=== PATIENT | female | born 1995 | race Two or more races ===

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

== ENCOUNTER 2019-02-07 05:49 | Emergency (ER) | payer OTHER ==
[2019-02-07 06:03] VITALS: BMI 27.1
[2019-02-07] MEDS ORDERED: ACETAMINOPHEN 325 MG TABLET (FP) PO ONE (07:40)
[2019-02-07] MEDS ORDERED: IBUPROFEN 400 MG TABLET (FP) PO ONE ×2 (07:40→08:35)
--- NOTE | 2019-02-07 07:41 | PDOC ---
History of Present Illness - General Chief Complaint: Chest Pain Stated Complaint: PALPITATIONS Time Seen by Provider: 02/07/19 07:29 History Source: Patient Exam Limitations: No Limitations - History of Present Illness Initial Comments: 02/07/19 07:40 23y F with no pmhx persents with complaint of chest pain since awakening this morning. The patient was in her usual state of health until this morning when she woke up at 4am. She noticd some sternal chest pain especialy when she moved raound, sat up, took a deep berath, fever/chils. pt denies any sob/wilkerson, cough, hemoptysis, diziness, palpitatins, n/v, diaphoresis. No prior history of chest pain. No recent history of trauma, heavy lifting. Pt denies any leg swelling. Pt on no mdications. social: denies smoking family: noncontributory Past History - Past Medical History Allergies/Adverse Reactions: Allergies Allergy/AdvReac Type Severity Reaction Status Date / Time No Known Allergies Allergy Verified 02/07/19 05:57 Home Medications: Ambulatory Orders Nitrofurantoin Monohyd/M-Cryst [Macrobid -] 100 mg PO BID 08/16/16 COPD: No - Reproductive History (#): 1 Para: 0 Cervical CA: No Dysfunctional Uterine Bleeding: No Ectopic : No Endometrial CA: No Polycystic Ovaries: No Therapeutic (s) & number: Yes Tubal Ligation: No - Immunization History Immunization Up to Date: Yes - Psycho Social/Smoking Cessation Hx Smoking Status: No Smoking History: Never smoked Number of Cigarettes Smoked Daily: 0 Hx Alcohol Use: No Drug/Substance Use Hx: No Substance Use Type: None Review of Systems - Review of Systems Able to Perform ROS?: Yes Comments:: 02/07/19 07:59 ROS: Constitutional - no reported Fever, Chills, HEENT: no reported vision changes, sore throat Respiratory: no reported cough, sob, hemoptysis Cardiac: +chest pain, no reported palpitations, light headedness, leg swelling Abd/GI: no reported abd pain, nausea, vomiting, blood per rectum, melena, diarrhea : no reported dysuria, frequency, discharge Musculskelatal - no reported back pain, joint swelling skin - no reported bruising, erythema, rash neurological: no reported headache, numbness, focal weakness, tingling, ataxia, hematologic: no reported easy bruising, easy bleeding Physical exam: GENERAL: The patient is awake, alert, and fully oriented, Nontoxic - in no acute distress. HEAD: Normocephalic, atraumatic. EYES: extraocular movements intact, sclera anicteric, conjunctiva clear. ENT: Normal voice, Moist mucous membranes. NECK: Normal range of motion, supple LUNGS: Breath sounds equal, clear to auscultation bilaterally. No wheezes, no rhonchi, no rales. CHEST: Mild ttp to the sternum, no rashes present, +pain with flexion/extension , abduction of shoulder HEART: Regular rate and rhythm, normal S1 and S2 without murmur, rub or gallop. ABDOMEN: Soft, nontender, No guarding, no rebound. No CVA tenderness EXTREMITIES: Normal range of motion, no edema. NEUROLOGICAL: No facial assymetry, Normal speech, PSYCH: Normal mood, normal affect. SKIN: Warm, Dry, normal turgor, *Physical Exam - Vital Signs Last Vital Signs Temp Pulse Resp BP Pulse Ox 98.4 F 101 H 16 104/64 99 02/07/19 10:05 02/07/19 10:05 02/07/19 10:05 02/07/19 10:05 02/07/19 10:05 Heart Score/ECG Review - ECG Impressions Comment:: 02/07/19 08:09 Twelve-lead EKG was performed and reviewed by me. There is normal sinus rhythm with a normal rate. Rate of [address] changes suggest of acute ischemia Impression: NSR ED Treatment Course - ADDITIONAL ORDERS Additional order review: Laboratory Results 02/07/19 10:05 Urine HCG, Qual Negative - RADIOLOGY Radiology Studies Ordered: Category Date Time Status CHEST PA & LAT [RAD] Stat Radiology 02/07/19 07:41 Completed - Medications Given in the ED: ED Medications Discontinued Medications Generic Name Dose Route Start Last Admin Trade Name Marcoq PRN Reason Stop Dose Admin Acetaminophen 650 mg 02/07/19 07:40 02/07/19 08:30 Tylenol - PO 02/07/19 07:41 650 mg ONCE ONE Administration Ibuprofen 400 mg 02/07/19 07:40 02/07/19 08:30 Motrin - PO 02/07/19 07:41 400 mg ONCE ONE Administration Medical Decision Making - Medical Decision Making 02/07/19 08:02 23-year-old female no significant past medical history presenting with atraumatic sternal chest pain that is reproduced with movement of her arms and on palpation, there is no rash present, there is no anginal symptoms. suspect chostochrndriis - will treat with motrin, will obtin cxr ekg wnl 02/07/19 10:31 pt feeling improved O2 sat 98% on RA will dc with pmd fu return precautions were discused I discussed the physical exam findings, ancillary test results and final diagnoses with the patient. I answered all of the patient's questions. The patient was satisfied with the care received and felt comfortable with the discharge plan and treatment plan. The patient will call their primary care physician within 24 hours to arrange follow-up and will return to the Emergency Department with any new, persistent or worsening symptoms. Discharge - Discharge Information Problems reviewed: Yes Clinical Impression/Diagnosis: Costochondral chest pain Condition: Improved Disposition: HOME - Admission No - Follow up/Referral Referrals: Say Colunga [Primary Care Provider] - - Patient Discharge Instructions Patient Printed Discharge Instructions: DI for Costochondritis Additional Instructions: Return to the emergency department immediately with ANY new, persistent or worsening symptoms. Tke ibuprofen and tylenol every 6 hours for the next 2 days. Avoid heavy lifting You MUST call and follow up with your doctor tomorrow for further evaluation of your symptoms. Results were discussed with you. Please make sure your doctor reviews the results of your emergency evaluation. Your Emergency Department visit is not complete without a follow up with your doctor. If you had any xrays during your visit, it was read preliminarily by myself, a Radiologist will review it and if there are any additional findings we will call you. Print Language: MOLDOVAN - Post Discharge Activity Work/Back to School Note: Back to Work
[2019-02-07] MEDS ORDERED: ACETAMINOPHEN 325 MG TABLET (FP) ONE (08:35)
[2019-02-07 10:06] VITALS: PULSE 101; TEMP 98.4
[2019-02-07 10:39] VITALS: BP 104/64
--- NOTE | 2019-02-07 13:59 | EKG ---
Test Reason : Blood Pressure : / mmHG Vent. Rate : 080 BPM Atrial Rate : 080 BPM P-R Int : 150 ms QRS Dur : 072 ms QT Int : 368 ms P-R-T Axes : 065 022 047 degrees QTc Int : 424 ms NORMAL SINUS RHYTHM NORMAL ECG NO PREVIOUS ECGS AVAILABLE Confirmed by ISAÍAS BROUSSARD MD ([id number]) on 02/07/2019 1:59:24 PM Referred By: Confirmed By:ISAÍAS BROUSSARD MD
== END 2019-02-07 10:42 | disposition home or self-care (01) ==
LOC: JER 05:49
DX: M94.0 Chondrocostal junction syndrome [Tietze] (principal)
CPT/HCPCS: 71046-TC-FY; 84703; 93005; 93010; 99282-25